=== PATIENT | male | born 1955 | race Caucasian/White ===

== ENCOUNTER 2017-05-26 22:25 | Emergency (ER) | payer OTHER ==
[~2017-05-26] VITALS: Ht 190.5 cm; Wt 102.1 kg
[2017-05-26 22:25] VITALS: BP 120/86
--- NOTE | 2017-05-26 23:12 | NUR ---
RADIOLOGY AT BEDSIDE FOR L FOOT/ANKLE XRAY.
[2017-05-26] MEDS ORDERED: IBUPROFEN 600 MG TABLET PO ONE ×3 (23:19→23:30)
== END 2017-05-27 00:02 | disposition home or self-care (01) ==
LOC: ER 22:38
DX: S93.402A Sprain of unspecified ligament of left ankle, initial encounter (principal); W22.8XXA Striking against or struck by other objects, initial encounter; Y93.I9 Activity, other involving external motion; Y92.89 Other specified places as the place of occurrence of the external cause; Y99.0 Civilian activity done for income or pay
CPT/HCPCS: 73610; 73630; 99284; A4606; Z7610